=== PATIENT | female | born 1995 | race African-American/Black ===

== ENCOUNTER 2017-08-28 02:01 | Emergency (ER) | payer SELFPAY ==
[2017-08-28 02:35] LABS: Bilirubin Small (Negative); Blood, Urine Negative (Negative); Glucose, Urine (Dipstick) Negative (Negative); Ketone, Urine Trace mg/dL (Negative); Nitrite Negative (Negative); Protein, Urine (Dipstick) Trace mg/dL (Neg-Trace); Urobilinogen 0.2 mg/dL (0.2-1.0)
[2017-08-28 02:37] LABS: Bacteria/HPF Rare-Few HPF (None Seen); WBC/HPF 21-50 HPF (0-3)
[2017-08-28 03:21] LABS: Hyaline Casts/LPF NONE SEEN LPF (0-3 Hyaline); Renal Epithelial None Seen HPF (0-3); Transitional Epithelial NONE SEEN HPF (0-3); Yeast-All Forms None Seen HPF (None Seen)
[2017-08-28 04:08] LABS: #Basophils 0.1 thou/uL (0.0-0.2); #Eosinphils 0.3 thou/uL (0.0-0.7); #Lymphocytes 2.8 thou/uL (1.20-3.40); #Monocytes 0.7 thou/uL (0.11-0.59); %Basophils 0.9 % (0.0-1.0); %Eosinophils 3.1 % (0.0-10.0); %Monocytes 7.1 % (0.0-10.0); Hematocrit 37.1 % (36.0-47.0); Red Blood Cell (RBC) Count 3.63 mill/uL (4.20-5.40); White Blood Cell (WBC) Count 9.9 thou/uL (4.8-10.8)
[2017-08-28] MEDS ORDERED: Azithromycin 250 MG TAB ONE (05:46)
[2017-08-28] MEDS ORDERED: cefTRIAXone\\ROCEPHIN 250 MG VIAL ONE (05:46)
== END 2017-08-28 06:43 | disposition home or self-care (01) ==
LOC: ERS 02:01
DX: N39.0 Urinary tract infection, site not specified (principal); J45.909 Unspecified asthma, uncomplicated; F17.210 Nicotine dependence, cigarettes, uncomplicated
CPT/HCPCS: 36415; 81003; 81015; 81025; 85025; 87480; 87491; 87510; 87591; 87660; 96361; 96374; 99406; J0696

== ENCOUNTER 2018-01-01 22:37 | Emergency (ER) | payer SELFPAY | END 2018-01-02 00:29 | disposition left against medical advice (07) | LOC: ERS 22:37 | DX: Z53.21 Procedure and treatment not carried out due to patient leaving prior to being seen by health care provider (principal) ==

== ENCOUNTER 2018-05-27 22:19 | Emergency (ER) | payer SELFPAY ==
[2018-05-27 22:54] LABS: Bilirubin Negative (Negative); Blood, Urine Negative (Negative); Clarity CLEAR (Clear); Glucose, Urine (Dipstick) Negative (Negative); Leukocyte Moderate (Negative); Nitrite Negative (Negative); Pregnancy Test - Urine (BHCG) Negative (Negative); Pregu Control Background? CLEAR/WHITE (CLR/WHITE); Pregu Control Bar Appear? YES (CONTROL BAR); Protein, Urine (Dipstick) Negative (Neg-Trace); Specific Gravity 1.024 (1.002-1.036); Specific Gravity, Urine 1.024 (1.002-1.036); pH, Urine 6.5 (5.0-9.0)
[2018-05-27 22:55] LABS: Bacteria/HPF None Seen HPF (None Seen); Hyaline Casts/LPF 0-3 HYALINE CAST LPF (0-3 Hyaline); Pathc Cast-AUWi Flag 0.58 (0-2.49); RBC/HPF 0-3 HPF (0-3); WBC/HPF 21-50 HPF (0-3)
== END 2018-05-27 23:37 | disposition home or self-care (01) ==
LOC: ERS 22:19
DX: N39.0 Urinary tract infection, site not specified (principal); J45.909 Unspecified asthma, uncomplicated; F32.9 Major depressive disorder, single episode, unspecified; F17.210 Nicotine dependence, cigarettes, uncomplicated
CPT/HCPCS: 81003; 81015; 81025; 99283

== ENCOUNTER 2018-08-27 17:55 | Emergency (ER) | payer SELFPAY ==
[2018-08-27] MEDS ORDERED: Ondansetron PF 4 MG/2 ML Vial ONE (18:10)
[2018-08-27 18:35] LABS: #Eosinphils 0.1 thou/uL (0.0-0.7); #Monocytes 0.7 thou/uL (0.11-0.59); #Neutrophils 10.3 thou/uL (1.40-6.50); %Basophils 0.3 % (0.0-1.0); %Eosinophils 0.7 % (0.0-10.0); %Lymphocytes 7.9 % (21.0-51.0); %Neutrophils 85.2 % (42.0-75.0); Hemoglobin 15.3 g/dL (12.0-16.0); Mean Corpuscular HGB CONC 33.8 g/dL (32.0-36.0); Mean Corpuscular Hemoglobin 33.4 pg (27.0-31.0); Mean Platelet Volume 7.1 fL (7.4-10.4); Platelet Count 291 thou/uL (130-400); RBC Distribution Width 11.7 % (11.5-14.5); Red Blood Cell (RBC) Count 4.57 mill/uL (4.20-5.40); White Blood Cell (WBC) Count 12.1 thou/uL (4.8-10.8)
[2018-08-27 18:59] LABS: ALT (SGPT) 14 U/L (8-55); AST (SGOT) 19 U/L (5-34); Albumin 4.7 g/dL (3.5-5.0); Alkaline Phosphatase 56 U/L (40-150); Anion Gap 13 mmol/L (10-20); BUN (Urea Nitrogen) 13 mg/dL (7.0-18.7); Bilirubin, Total 0.7 mg/dL (0.2-1.2); Calc. Creatinine Clearance 0 mL/min (70-130); Calcium 9.6 mg/dL (7.8-10.44); Carbon Dioxide 23 mmol/L (22-29); Chloride 108 mmol/L (98-107); Estimated GFR-MDRD Greater than 90; Globulin 3.4 g/dL (2.4-3.5); Glucose 95 mg/dL (70-105); Lipase 36 U/L (8-78); Potassium 3.6 mmol/L (3.5-5.1); Protein, Total 8.1 g/dL (6.0-8.3); Sodium 140 mmol/L (136-145)
[2018-08-27 19:23] LABS: Bilirubin Small (Negative); Blood, Urine Negative (Negative); Clarity CLEAR (Clear); Glucose, Urine (Dipstick) Negative (Negative); Leukocyte Negative (Negative); Nitrite Negative (Negative); Protein, Urine (Dipstick) 100 mg/dL (Neg-Trace); Specific Gravity, Urine 1.033 (1.002-1.036); pH, Urine 6.5 (5.0-9.0)
[2018-08-27 19:24] LABS: Pregnancy Test - Urine (BHCG) Negative (Negative); Pregu Control Background? CLEAR/WHITE (CLR/WHITE); Pregu Control Bar Appear? YES (CONTROL BAR); Specific Gravity 1.033 (1.002-1.036)
[2018-08-27 19:26] LABS: Bacteria/HPF None Seen HPF (None Seen)
[2018-08-27 19:31] LABS: Hyaline Casts/LPF 0-3 HYALINE CAST LPF (0-3 Hyaline); Manual Microscopic Reviewed? No Path Casts Seen; Renal Epithelial None Seen HPF (0-3); Transitional Epithelial NONE SEEN HPF (0-3)
== END 2018-08-27 19:53 | disposition home or self-care (01) ==
LOC: ERS 17:55
DX: E86.0 Dehydration (principal); J45.909 Unspecified asthma, uncomplicated; F32.9 Major depressive disorder, single episode, unspecified; F17.210 Nicotine dependence, cigarettes, uncomplicated
CPT/HCPCS: 80053; 81003; 81015; 81025; 83690; 85025; 96361; 96372; 96374; J2405

== ENCOUNTER 2019-07-01 21:41 | Emergency (ER) | payer SELFPAY ==
[2019-07-01 22:32] LABS: #Basophils 0.1 thou/uL (0.0-0.2); #Eosinphils 0.2 thou/uL (0.0-0.7); #Lymphocytes 2.5 thou/uL (1.20-3.40); #Monocytes 0.4 thou/uL (0.11-0.59); #Neutrophils 4.6 thou/uL (1.40-6.50); %Eosinophils 2.8 % (0.0-10.0); %Lymphocytes 31.9 % (21.0-51.0); %Monocytes 5.6 % (0.0-10.0); %Neutrophils 58.7 % (42.0-75.0); Hemoglobin 13.1 g/dL (12.0-16.0); Mean Corpuscular HGB CONC 33.9 g/dL (32.0-36.0); Mean Corpuscular Hemoglobin 33.2 pg (27.0-31.0); Mean Corpuscular Volume 97.9 fL (78.0-98.0); Mean Platelet Volume 7.4 fL (7.4-10.4); Platelet Count 236 thou/uL (130-400); RBC Distribution Width 12.1 % (11.5-14.5); Red Blood Cell (RBC) Count 3.93 mill/uL (4.20-5.40); White Blood Cell (WBC) Count 7.9 thou/uL (4.8-10.8)
[2019-07-01 22:39] LABS: BHCG - Serum Negative (NEGATIVE); Pregs Control Background? CLEAR/WHITE (CLR/WHITE); Pregs Control Bar Appear? YES (CONTROL BAR)
[2019-07-01 22:52] LABS: ALT (SGPT) 7 U/L (8-55); AST (SGOT) 16 U/L (5-34); Albumin 3.9 g/dL (3.5-5.0); Alkaline Phosphatase 47 U/L (40-150); Anion Gap 12 mmol/L (10-20); BUN (Urea Nitrogen) 11 mg/dL (7.0-18.7); Bilirubin, Total 0.3 mg/dL (0.2-1.2); Calc. Creatinine Clearance 0 mL/min (70-130); Calcium 8.8 mg/dL (7.8-10.44); Carbon Dioxide 19 mmol/L (22-29); Chloride 111 mmol/L (98-107); Estimated GFR-MDRD 90; Globulin 2.8 g/dL (2.4-3.5); Glucose 80 mg/dL (70-105); Potassium 3.9 mmol/L (3.5-5.1); Protein, Total 6.7 g/dL (6.0-8.3); Sodium 138 mmol/L (136-145)
== END 2019-07-01 23:14 | disposition home or self-care (01) ==
LOC: ERS 21:41
DX: R11.2 Nausea with vomiting, unspecified (principal); R19.7 Diarrhea, unspecified; J45.909 Unspecified asthma, uncomplicated; F32.9 Major depressive disorder, single episode, unspecified; Z71.6 Tobacco abuse counseling; F17.210 Nicotine dependence, cigarettes, uncomplicated; Z79.51 Long term (current) use of inhaled steroids
CPT/HCPCS: 36415; 80053; 84703; 85025; 99406

== ENCOUNTER 2019-07-25 00:45 | Emergency (ER) | payer SELFPAY | END 2019-07-25 02:08 | disposition home or self-care (01) | LOC: ERS 00:45 | DX: H61.23 Impacted cerumen, bilateral (principal); H92.02 Otalgia, left ear; J45.909 Unspecified asthma, uncomplicated; F32.9 Major depressive disorder, single episode, unspecified; F17.210 Nicotine dependence, cigarettes, uncomplicated; Z79.51 Long term (current) use of inhaled steroids | CPT/HCPCS: 99282 ==

== ENCOUNTER 2019-12-09 11:13 | Emergency (ER) | payer SELFPAY ==
[2019-12-09] MEDS ORDERED: diphenhydrAMINE 50 MG/ML VIAL ONE (15:35)
[2019-12-09] MEDS ORDERED: Lorazepam 2 MG/ML VIAL ONE (15:35)
[2019-12-09] MEDS ORDERED: Haloperidol Lactate 5 MG/ML VIAL ONE (15:35)
== END 2019-12-09 12:17 | disposition home or self-care (01) ==
LOC: ERS 11:13
DX: K03.81 Cracked tooth (principal); J45.909 Unspecified asthma, uncomplicated; F32.9 Major depressive disorder, single episode, unspecified; F17.210 Nicotine dependence, cigarettes, uncomplicated
CPT/HCPCS: 99282; J1200; J1630; J2060

== ENCOUNTER 2020-03-25 07:29 | Emergency (ER) | payer OTHER, SELFPAY ==
[2020-03-25] MEDS ORDERED: predniSONE 20 MG TAB ONE ×2 (08:16→08:18)
== END 2020-03-25 08:48 | disposition home or self-care (01) ==
LOC: ERS 07:29
DX: J45.901 Unspecified asthma with (acute) exacerbation (principal); Z20.828 Contact with and (suspected) exposure to other viral communicable diseases; F32.9 Major depressive disorder, single episode, unspecified; F17.210 Nicotine dependence, cigarettes, uncomplicated
CPT/HCPCS: 99283; J7512

== ENCOUNTER 2020-04-21 23:02 | Emergency (ER) | payer SELFPAY | END 2020-04-21 23:25 | disposition home or self-care (01) | LOC: ERS 23:02 | DX: J45.901 Unspecified asthma with (acute) exacerbation (principal); F32.9 Major depressive disorder, single episode, unspecified; F17.210 Nicotine dependence, cigarettes, uncomplicated | CPT/HCPCS: 99284 ==

== ENCOUNTER 2020-04-23 16:44 | Emergency (ER) | payer OTHER, SELFPAY ==
--- NOTE | 2020-04-23 17:01 | RAD ---
EXAM: XR Chest 1 View Portable PROVIDED CLINICAL HISTORY: Cough, chest pain, shortness of breath. COMPARISON: 01/07/2018. FINDINGS: Heart and mediastinal structures have a normal appearance. Interstitial densities are seen at the lef t lung base which may be related to superimposition of structures. Developing focal area of pneumonitis cannot be entirely excluded. There is no consolidation or pleural fluid seen. No other in terval change from prior exam. IMPRESSION: Mild increased interstitial densities left lung base. This may be attributable to superimposition of structures, but developing area of pneumonitis cannot be excluded.
[2020-04-23] MEDS ORDERED: Ketorolac Tromethamine 30 MG/ML VIAL ONE (17:24)
[2020-04-23] MEDS ORDERED: PROVENTIL INHALER 6.7 G (200 INHALATIONS) ONE (17:24)
[2020-04-23] MEDS ORDERED: Albuterol Sulfate 2.5 mg/3 ml Neb ONE (17:32)
[2020-04-23] MEDS ORDERED: Albuterol 200 PUFF (6.7GM INHALER) ONE (17:33)
[2020-04-23 17:56] LABS: #Eosinphils 0.1 thou/uL (0.0-0.7); #Lymphocytes 1.3 thou/uL (1.20-3.40); #Monocytes 1.2 thou/uL (0.11-0.59); %Basophils 0.2 % (0.0-1.0); %Eosinophils 0.6 % (0.0-10.0); %Lymphocytes 9.4 % (21.0-51.0); %Monocytes 8.6 % (0.0-10.0); %Neutrophils 81.3 % (42.0-75.0); Hemoglobin 15.1 g/dL (12.0-16.0); Mean Corpuscular HGB CONC 32.9 g/dL (32.0-36.0); Mean Corpuscular Hemoglobin 31.8 pg (27.0-31.0); Mean Corpuscular Volume 96.6 fL (78.0-98.0); Mean Platelet Volume 7.6 fL (7.4-10.4); Platelet Count 284 thou/uL (130-400); RBC Distribution Width 12.1 % (11.5-14.5); Red Blood Cell (RBC) Count 4.75 mill/uL (4.20-5.40); White Blood Cell (WBC) Count 13.5 thou/uL (4.8-10.8)
[2020-04-23 18:17] LABS: ALT (SGPT) 11 U/L (8-55); AST (SGOT) 19 U/L (5-34); Albumin 4.6 g/dL (3.5-5.0); Alkaline Phosphatase 68 U/L (40-110); Anion Gap 16 mmol/L (10-20); BUN (Urea Nitrogen) 8 mg/dL (7.0-18.7); Bilirubin, Total 0.4 mg/dL (0.2-1.2); Calc. Creatinine Clearance 0 mL/min (70-130); Calcium 9.7 mg/dL (7.8-10.44); Carbon Dioxide 19 mmol/L (22-29); Chloride 110 mmol/L (98-107); Estimated GFR-MDRD Greater than 90; Globulin 3.6 g/dL (2.4-3.5); Glucose 94 mg/dL (70-105); Potassium 3.6 mmol/L (3.5-5.1); Protein, Total 8.2 g/dL (6.0-8.3); Sodium 141 mmol/L (136-145)
[2020-04-25 12:27] LABS: SARS-CoV-2 MS2 Positive; SARS-CoV-2 N Gene Negative; SARS-CoV-2 S Gene Negative; SARS-CoV-2 orf1ab Negative
== END 2020-04-23 19:15 | disposition home or self-care (01) ==
LOC: ERS 16:44
DX: J45.901 Unspecified asthma with (acute) exacerbation (principal); Z20.828 Contact with and (suspected) exposure to other viral communicable diseases; F17.210 Nicotine dependence, cigarettes, uncomplicated; Z79.51 Long term (current) use of inhaled steroids
CPT/HCPCS: 36415; 71045; 80053; 85025; 87635; 96372; J1885; J7611; U0003

== ENCOUNTER 2020-08-18 21:47 | Emergency (ER) | payer OTHER, SELFPAY ==
[2020-08-18 22:59] LABS: #Eosinphils 0.7 thou/uL (0.0-0.7); #Lymphocytes 2.7 thou/uL (1.20-3.40); #Monocytes 0.8 thou/uL (0.11-0.59); %Basophils 0.3 % (0.0-1.0); %Eosinophils 5.4 % (0.0-10.0); %Lymphocytes 20.4 % (21.0-51.0); %Monocytes 5.9 % (0.0-10.0); %Neutrophils 67.9 % (42.0-75.0); Hemoglobin 14.8 g/dL (12.0-16.0); Mean Platelet Volume 7.2 fL (7.4-10.4); Platelet Count 290 thou/uL (130-400); RBC Distribution Width 11.8 % (11.5-14.5); Red Blood Cell (RBC) Count 4.36 mill/uL (4.20-5.40); White Blood Cell (WBC) Count 13.3 thou/uL (4.8-10.8)
[2020-08-18 23:21] LABS: ALT (SGPT) 7 U/L (8-55); AST (SGOT) 16 U/L (5-34); Albumin 4.2 g/dL (3.5-5.0); Alkaline Phosphatase 53 U/L (40-110); Anion Gap 14 mmol/L (10-20); BUN (Urea Nitrogen) 8 mg/dL (7.0-18.7); Bilirubin, Total 0.3 mg/dL (0.2-1.2); Calc. Creatinine Clearance 0 mL/min (70-130); Calcium 9.5 mg/dL (7.8-10.44); Carbon Dioxide 24 mmol/L (22-29); Chloride 108 mmol/L (98-107); Estimated GFR-MDRD Greater than 90; Globulin 3.1 g/dL (2.4-3.5); Glucose 98 mg/dL (70-105); Potassium 3.7 mmol/L (3.5-5.1); Protein, Total 7.3 g/dL (6.0-8.3); Sodium 142 mmol/L (136-145)
[2020-08-18] MEDS ORDERED: methylPREDNISolone Sod Succ/PF 125 MG/2 ML VIAL ONE (23:40)
--- NOTE | 2020-08-18 23:45 | RAD ---
EXAM: CHEST ONE VIEW HISTORY: Dyspnea. History of asthma. COMPARISON: 04/23/2020 FINDINGS: The cardiac silhouette and pulmonary vasculature are within normal limits. Mild linear densities are seen at the left lung base similar to prior study could be related to superimposition of vascular structures or mild scarring. No consolidation or pleural fluid is seen. Chest is overall stable mykel red to the prior exam. IMPRESSION: Linear densities left lung base which could be related to vascular structures and mild scarring. No n ew area of consolidation or pleural fluid is seen, and the chest is overall stable compared to prior exam.
[2020-08-19] MEDS ORDERED: Ketorolac Tromethamine 30 MG/ML VIAL ONE (00:10)
[2020-08-19 14:56] LABS: SARS-CoV-2 MS2 Positive; SARS-CoV-2 N Gene Negative; SARS-CoV-2 S Gene Negative; SARS-CoV-2 by NAA Not Detected (NotDetected); SARS-CoV-2 orf1ab Negative
== END 2020-08-19 00:35 | disposition home or self-care (01) ==
LOC: ERS 21:47
DX: J45.901 Unspecified asthma with (acute) exacerbation (principal); Z20.828 Contact with and (suspected) exposure to other viral communicable diseases; F17.210 Nicotine dependence, cigarettes, uncomplicated
CPT/HCPCS: 36415; 71045; 80053; 85025; 87635; 87804; 96374; 96375; J1885; J2930; J7620; U0003

== ENCOUNTER 2020-11-24 09:15 | Emergency (ER) | payer SELFPAY ==
[2020-11-24 09:57] LABS: #Basophils 0.1 thou/uL (0.0-0.2); #Eosinphils 0.6 thou/uL (0.0-0.7); #Lymphocytes 1.8 thou/uL (1.20-3.40); #Monocytes 0.8 thou/uL (0.11-0.59); #Neutrophils 9.9 thou/uL (1.40-6.50); %Basophils 0.7 % (0.0-1.0); %Eosinophils 4.3 % (0.0-10.0); %Lymphocytes 13.5 % (21.0-51.0); %Neutrophils 75.4 % (42.0-75.0); Hemoglobin 14.4 g/dL (12.0-16.0); Mean Corpuscular HGB CONC 34.5 g/dL (32.0-36.0); Mean Corpuscular Hemoglobin 34.1 pg (27.0-31.0); Mean Corpuscular Volume 98.7 fL (78.0-98.0); Mean Platelet Volume 7.2 fL (7.4-10.4); Platelet Count 255 thou/uL (130-400); RBC Distribution Width 12.1 % (11.5-14.5); Red Blood Cell (RBC) Count 4.23 mill/uL (4.20-5.40); White Blood Cell (WBC) Count 13.1 thou/uL (4.8-10.8)
[2020-11-24 10:14] LABS: ALT (SGPT) Less than 7 U/L (8-55); AST (SGOT) 16 U/L (5-34); Albumin 4.4 g/dL (3.5-5.0); Alkaline Phosphatase 59 U/L (40-110); Anion Gap 14 mmol/L (10-20); BUN (Urea Nitrogen) 8 mg/dL (7.0-18.7); Bilirubin, Total 0.5 mg/dL (0.2-1.2); Calc. Creatinine Clearance 0 mL/min (70-130); Calcium 8.9 mg/dL (7.8-10.44); Carbon Dioxide 22 mmol/L (22-29); Chloride 112 mmol/L (98-107); Globulin 2.8 g/dL (2.4-3.5); Glucose 85 mg/dL (70-105); Potassium 3.7 mmol/L (3.5-5.1); Protein, Total 7.2 g/dL (6.0-8.3); Sodium 144 mmol/L (136-145)
--- NOTE | 2020-11-24 10:27 | RAD ---
XR Chest 1 View Portable History: Chest pain Comparison: Radiograph August 18, 2020 Findings: Lungs are clear. No pneumothorax or effusion. Cardiac silhouette and mediastinal contours a re within normal limits. No acute osseous abnormality. Impression: No acute intrathoracic abnormality.
[2020-11-24] MEDS ORDERED: predniSONE 20 MG TAB ONE (11:30)
[2020-11-24] MEDS ORDERED: Albuterol 200 PUFF (6.7GM INHALER) ONE (11:32)
== END 2020-11-24 12:30 | disposition home or self-care (01) ==
LOC: ERS 09:15
DX: J45.901 Unspecified asthma with (acute) exacerbation (principal); F17.210 Nicotine dependence, cigarettes, uncomplicated; Z79.51 Long term (current) use of inhaled steroids
CPT/HCPCS: 36415; 71045; 80053; 84484; 85025; 93005; J7512

== ENCOUNTER 2021-01-09 09:02 | Observation (INO) | payer OTHER, SELFPAY ==
[2021-01-09] MEDS ORDERED: Morphine 4 MG/ML VIAL ONE ×2 (09:09→10:47)
[2021-01-09 09:30] LABS: #Basophils 0.1 thou/uL (0.0-0.2); #Eosinphils 0.4 thou/uL (0.0-0.7); #Lymphocytes 2.1 thou/uL (1.20-3.40); #Monocytes 0.5 thou/uL (0.11-0.59); #Neutrophils 4.6 thou/uL (1.40-6.50); %Basophils 1.1 % (0.0-1.0); %Eosinophils 5.7 % (0.0-10.0); %Lymphocytes 27.1 % (21.0-51.0); %Neutrophils 59.2 % (42.0-75.0); Hemoglobin 14.8 g/dL (12.0-16.0); Mean Corpuscular HGB CONC 34.5 g/dL (32.0-36.0); Mean Corpuscular Hemoglobin 33.9 pg (27.0-31.0); Mean Corpuscular Volume 98.3 fL (78.0-98.0); Platelet Count 289 thou/uL (130-400); RBC Distribution Width 11.8 % (11.5-14.5); Red Blood Cell (RBC) Count 4.36 mill/uL (4.20-5.40); White Blood Cell (WBC) Count 7.7 thou/uL (4.8-10.8)
[2021-01-09] MEDS ORDERED: Iopamidol-370 76% 500 ML 1 ML ONE (09:32)
[2021-01-09 09:37] LABS: BHCG - Serum Negative (NEGATIVE); Pregs Control Background? CLEAR/WHITE (CLR/WHITE); Pregs Control Bar Appear? YES (CONTROL BAR)
[2021-01-09 09:48] LABS: ALT (SGPT) Less than 7 U/L (8-55); AST (SGOT) 14 U/L (5-34); Albumin 4.1 g/dL (3.5-5.0); Alkaline Phosphatase 57 U/L (40-110); Anion Gap 13 mmol/L (10-20); BUN (Urea Nitrogen) 14 mg/dL (7.0-18.7); Bilirubin, Total 0.4 mg/dL (0.2-1.2); Calc. Creatinine Clearance 0 mL/min (70-130); Calcium 9.2 mg/dL (7.8-10.44); Carbon Dioxide 22 mmol/L (22-29); Chloride 112 mmol/L (98-107); Globulin 3.1 g/dL (2.4-3.5); Glucose 87 mg/dL (70-105); Potassium 3.7 mmol/L (3.5-5.1); Protein, Total 7.2 g/dL (6.0-8.3); Sodium 143 mmol/L (136-145)
[2021-01-09 09:49] LABS: PTT 28.5 sec (22.9-36.1); Prothrombin Time 13.5 sec (12.0-14.7)
[2021-01-09] MEDS ORDERED: Cyclobenzaprine 10 MG TAB PO PRN (12:37)
[2021-01-09] MEDS ORDERED: TETANUS, DIPHTHERIA TOX,ADULT (TDVAX) 0.5 ML VIAL IM ONE (12:37)
[2021-01-09] MEDS ORDERED: Morphine 2 MG/ML VIAL SLOW IVP PRN (12:37)
[2021-01-09] MEDS ORDERED: Acetaminophen 325 MG TAB PO SCH ×2 (12:45→20:45)
[2021-01-09] MEDS: Ondansetron PF 4 MG/2 ML Vial IVP SCH ×2 (14:48→18:03)
[2021-01-09] MEDS: Pseudoephedrine HCl 30 MG TAB PO SCH ×2 (14:54→18:03)
[2021-01-09] MEDS: Ibuprofen 600 MG TAB PO SCH ×2 (14:58→21:32)
[2021-01-09] MEDS: Gabapentin 300 MG CAP PO SCH ×2 (14:58→21:34)
[2021-01-09] MEDS: traMADol HCl 50 MG TAB PO SCH (18:02)
[2021-01-09 18:38] VITALS: BMI 27.2
[2021-01-09] MEDS: Famotidine 20 MG TAB PO SCH (21:32)
[2021-01-09] MEDS: Amoxicillin/Potassium Clav 875 MG TAB PO SCH (21:32)
[2021-01-09] MEDS: Docusate 100 MG CAP PO SCH (21:41)
[2021-01-10] MEDS: traMADol HCl 50 MG TAB PO SCH ×4 (00:07→18:52)
[2021-01-10] MEDS: Pseudoephedrine HCl 30 MG TAB PO SCH ×4 (00:09→18:53)
[2021-01-10] MEDS: Ondansetron PF 4 MG/2 ML Vial IVP SCH ×4 (00:10→20:55)
[2021-01-10 00:36] LABS: SARS-CoV-2 PCR by NAA Not Detected (NotDetected)
[2021-01-10] MEDS: Ibuprofen 600 MG TAB PO SCH ×4 (04:40→20:56)
[2021-01-10] MEDS: Mometasone 200 MCG/Formoterol 5 MCG 120 PUFF INHALER INH SCH ×2 (06:32→19:04)
[2021-01-10] MEDS: Gabapentin 300 MG CAP PO SCH ×3 (07:44→20:56)
[2021-01-10] MEDS: Amoxicillin/Potassium Clav 875 MG TAB PO SCH ×2 (07:45→20:56)
[2021-01-10] MEDS: Docusate 100 MG CAP PO SCH ×2 (07:45→20:56)
[2021-01-10] MEDS: Famotidine 20 MG TAB PO SCH ×2 (07:45→20:55)
[2021-01-10] MEDS: traMADol HCl 50 MG TAB PO PRN ×2 (07:52→16:28)
[2021-01-10] MEDS ORDERED: ALBUTEROL SULFATE 0.63 MG/3 ML NEB SCH (09:00)
[2021-01-10] MEDS: Dexamethasone 4 MG TAB PO SCH ×2 (12:23→18:52)
[2021-01-10] MEDS: Albuterol Sulfate 1.25 MG/3 ML NEB NEB SCH (19:03)
[2021-01-10] MEDS: Ibuprofen 200 MG TAB PO SCH (22:20)
[2021-01-11] MEDS: Pseudoephedrine HCl 30 MG TAB PO SCH ×3 (00:08→13:11)
[2021-01-11] MEDS: traMADol HCl 50 MG TAB PO SCH ×4 (00:08→11:18)
[2021-01-11] MEDS: Dexamethasone 4 MG TAB PO SCH ×3 (00:08→13:10)
[2021-01-11] MEDS: Ondansetron PF 4 MG/2 ML Vial IVP SCH ×2 (00:17→08:12)
[2021-01-11 04:09] VITALS: TEMP 98.1
[2021-01-11] MEDS: Ibuprofen 200 MG TAB PO SCH ×2 (04:58→13:10)
[2021-01-11] MEDS: Albuterol Sulfate 1.25 MG/3 ML NEB NEB SCH (07:05)
[2021-01-11] MEDS: Mometasone 200 MCG/Formoterol 5 MCG 120 PUFF INHALER INH SCH (07:06)
[2021-01-11] MEDS: Amoxicillin/Potassium Clav 875 MG TAB PO SCH (08:11)
[2021-01-11] MEDS: Famotidine 20 MG TAB PO SCH (08:12)
[2021-01-11] MEDS: Docusate 100 MG CAP PO SCH (08:12)
[2021-01-11] MEDS: Gabapentin 300 MG CAP PO SCH (08:12)
[2021-01-11 11:46] VITALS: BP 117/67
== END 2021-01-11 14:31 | disposition home or self-care (01) ==
LOC: ERS 09:02 → INTOOBSV 12:21 → SJJU 12:21
PROVIDERS: ADMIT Surgery; ATTEND Surgery
DX: S02.31XA Fracture of orbital floor, right side, initial encounter for closed fracture (principal); S02.2XXA Fracture of nasal bones, initial encounter for closed fracture; S02.40CA Maxillary fracture, right side, initial encounter for closed fracture; H53.2 Diplopia; G89.11 Acute pain due to trauma; J45.909 Unspecified asthma, uncomplicated; F17.210 Nicotine dependence, cigarettes, uncomplicated; Z20.822 Contact with and (suspected) exposure to COVID-19; V49.49XA Driver injured in collision with other motor vehicles in traffic accident, initial encounter
CPT/HCPCS: 36415; 70450; 70486; 71260; 72125; 74177; 80053; 84703; 85025; 85610; 85730; 86850; 86900; 86901; 87635; 90714; 94640; 94760; 96365; 96375; 96376; G0378; G0390; J0690; J2270; J2405; J8540; Q9967; U0003; U0005

== ENCOUNTER 2021-08-11 19:03 | Emergency (ER) | payer SELFPAY | END 2021-08-11 20:02 | disposition left against medical advice (07) | LOC: ERS 19:03 | DX: Z53.21 Procedure and treatment not carried out due to patient leaving prior to being seen by health care provider (principal) ==

== ENCOUNTER 2021-08-16 13:48 | Emergency (ER) | payer SELFPAY ==
[2021-08-16 16:33] LABS: SARS-CoV-2 NAA Rapid Test DETECTED (NotDetected)
== END 2021-08-16 16:47 | disposition home or self-care (01) ==
LOC: ERS 13:48
DX: U07.1 COVID-19 (principal); F17.210 Nicotine dependence, cigarettes, uncomplicated
CPT/HCPCS: 99284; U0002

== ENCOUNTER 2021-08-23 06:11 | Emergency (ER) | payer SELFPAY ==
[2021-08-23 07:03] LABS: #Eosinphils 0.4 thou/uL (0.0-0.7); #Lymphocytes 1.1 thou/uL (1.20-3.40); #Monocytes 0.5 thou/uL (0.11-0.59); #Neutrophils 5.5 thou/uL (1.40-6.50); %Basophils 0.4 % (0.0-1.0); %Eosinophils 5.2 % (0.0-10.0); %Lymphocytes 14.4 % (21.0-51.0); %Monocytes 6.8 % (0.0-10.0); %Neutrophils 73.2 % (42.0-75.0); Mean Corpuscular HGB CONC 33.2 g/dL (32.0-36.0); Mean Corpuscular Hemoglobin 32.4 pg (27.0-31.0); Mean Corpuscular Volume 97.5 fL (78.0-98.0); Mean Platelet Volume 6.6 fL (7.4-10.4); Platelet Count 259 thou/uL (130-400); Red Blood Cell (RBC) Count 4.33 mill/uL (4.20-5.40); White Blood Cell (WBC) Count 7.5 thou/uL (4.8-10.8)
[2021-08-23 07:28] LABS: ALT (SGPT) 15 U/L (8-55); AST (SGOT) 23 U/L (5-34); Albumin 3.9 g/dL (3.5-5.0); Alkaline Phosphatase 59 U/L (40-110); Anion Gap 12 mmol/L (10-20); BUN (Urea Nitrogen) 6 mg/dL (7.0-18.7); Bilirubin, Total 0.3 mg/dL (0.2-1.2); CRP (Inflammatory) 0.93 mg/dL (= or < 0.5); Calc. Creatinine Clearance 0 mL/min (70-130); Calcium 9.2 mg/dL (7.8-10.44); Carbon Dioxide 21 mmol/L (22-29); Chloride 112 mmol/L (98-107); Globulin 3.1 g/dL (2.4-3.5); Glucose 97 mg/dL (70-105); Potassium 3.8 mmol/L (3.5-5.1); Sodium 141 mmol/L (136-145)
[2021-08-23 07:30] LABS: BHCG - Serum Negative (NEGATIVE); Pregs Control Background? CLEAR/WHITE (CLR/WHITE); Pregs Control Bar Appear? YES (CONTROL BAR)
[2021-08-23] MEDS ORDERED: Albuterol 200 PUFF (6.7GM INHALER) ONE (08:23)
[2021-08-23] MEDS ORDERED: predniSONE 20 MG TAB ONE (08:23)
[2021-08-23] MEDS ORDERED: Iopamidol-370 76% 500 ML 1 ML ONE (09:59)
== END 2021-08-23 08:40 | disposition home or self-care (01) ==
LOC: ERS 06:11
DX: U07.1 COVID-19 (principal); J45.909 Unspecified asthma, uncomplicated; F17.210 Nicotine dependence, cigarettes, uncomplicated
CPT/HCPCS: 36415; 71275; 80053; 83605; 84484; 84703; 85025; 86140; 93005; J7512; Q9967

== ENCOUNTER 2021-10-18 04:35 | Emergency (ER) | payer SELFPAY, OTHER ==
[2021-10-18] MEDS ORDERED: Albuterol 200 PUFF (6.7GM INHALER) ONE (06:02)
[2021-10-18 06:50] LABS: SARS-CoV-2 NAA Rapid Test Not Detected (NotDetected)
== END 2021-10-18 06:23 | disposition home or self-care (01) ==
LOC: ERS 04:35
DX: R05.9 Cough, unspecified (principal); R50.9 Fever, unspecified; Z20.822 Contact with and (suspected) exposure to COVID-19; J45.909 Unspecified asthma, uncomplicated; F17.210 Nicotine dependence, cigarettes, uncomplicated
CPT/HCPCS: 0240U; 94664

== ENCOUNTER 2022-03-13 18:37 | Emergency (ER) | payer SELFPAY ==
[2022-03-13] MEDS ORDERED: diphenhydrAMINE 25 MG CAP ONE (20:20)
[2022-03-13] MEDS ORDERED: Famotidine 20 MG TAB ONE (20:20)
== END 2022-03-13 20:57 | disposition home or self-care (01) ==
LOC: ERS 18:37
DX: L25.9 Unspecified contact dermatitis, unspecified cause (principal); F17.210 Nicotine dependence, cigarettes, uncomplicated
CPT/HCPCS: 99282

== ENCOUNTER 2023-06-18 01:48 | Emergency (ER) | payer SELFPAY ==
[2023-06-18] MEDS ORDERED: predniSONE 20 MG TAB ONE (02:32)
[2023-06-18 03:16] LABS: #Basophils 0.1 thou/uL (0.0-0.2); #Eosinphils 0.6 thou/uL (0.0-0.7); #Monocytes 0.7 thou/uL (0.11-0.59); #Neutrophils 5.2 thou/uL (1.40-6.50); %Basophils 0.8 % (0.0-1.0); %Eosinophils 6.7 % (0.0-10.0); %Lymphocytes 28.1 % (21.0-51.0); %Monocytes 7.6 % (0.0-10.0); %Neutrophils 56.6 % (42.0-75.0); Hemoglobin 13.3 g/dL (12.0-16.0); Mean Corpuscular HGB CONC 34.1 g/dL (32.0-36.0); Mean Corpuscular Hemoglobin 31.4 pg (27.0-31.0); Mean Corpuscular Volume 92.2 fl (78.0-98.0); Mean Platelet Volume 9.3 fL (7.4-10.4); Platelet Count 328 10x3/uL (130-400); RBC Distribution Width 13.4 % (11.5-14.5); Red Blood Cell (RBC) Count 4.23 mill/uL (4.20-5.40); White Blood Cell (WBC) Count 9.1 10x3/uL (4.8-10.8)
[2023-06-18 03:39] LABS: ALT (SGPT) 8 U/L (8-55); AST (SGOT) 15 U/L (5-34); Alkaline Phosphatase 62 U/L (40-110); Anion Gap 12 mmol/L (10-20); BUN (Urea Nitrogen) 6 mg/dL (7.0-18.7); Bilirubin, Total 0.2 mg/dL (0.2-1.2); Calc. Creatinine Clearance 0 mL/min (70-130); Calcium 9.3 mg/dL (7.8-10.44); Carbon Dioxide 23 mmol/L (22-29); Chloride 110 mmol/L (98-107); Estimated GFR 86; Glucose 91 mg/dL (70-105); Potassium 3.2 mmol/L (3.5-5.1); Sodium 142 mmol/L (136-145)
== END 2023-06-18 04:07 | disposition home or self-care (01) ==
LOC: ERS 01:48
DX: J45.909 Unspecified asthma, uncomplicated (principal); F17.210 Nicotine dependence, cigarettes, uncomplicated; Z20.822 Contact with and (suspected) exposure to COVID-19
CPT/HCPCS: 36415; 71045; 80053; 85025; 87635; 93005; 94640; J7512

== ENCOUNTER 2023-10-11 08:22 | Emergency (ER) | payer BC ==
[2023-10-11 09:32] LABS: #Basophils 0.1 thou/uL (0.0-0.2); #Eosinphils 0.3 thou/uL (0.0-0.7); #Monocytes 0.6 thou/uL (0.11-0.59); #Neutrophils 6.8 thou/uL (1.40-6.50); %Basophils 0.6 % (0.0-1.0); %Lymphocytes 18.9 % (21.0-51.0); %Monocytes 5.8 % (0.0-10.0); %Neutrophils 71.4 % (42.0-75.0); Hematocrit 38.2 % (36.0-47.0); Hemoglobin 12.4 g/dL (12.0-16.0); Mean Corpuscular HGB CONC 32.5 g/dL (32.0-36.0); Mean Corpuscular Hemoglobin 31.3 pg (27.0-31.0); Mean Corpuscular Volume 96.5 fl (78.0-98.0); Mean Platelet Volume 9.4 fL (7.4-10.4); Platelet Count 283 10x3/uL (130-400); RBC Distribution Width 13.7 % (11.5-14.5); Red Blood Cell (RBC) Count 3.96 mill/uL (4.20-5.40); White Blood Cell (WBC) Count 9.5 10x3/uL (4.8-10.8)
[2023-10-11 09:51] LABS: SARS-CoV-2 NAA Rapid Test Not Detected (NotDetected)
[2023-10-11 09:57] LABS: Troponin I Less than 0.010 ng/mL (< 0.028)
[2023-10-11 10:00] LABS: ALT (SGPT) Less than 7 U/L (8-55); AST (SGOT) 18 U/L (5-34); Alkaline Phosphatase 58 U/L (40-110); Anion Gap 14 mmol/L (10-20); BUN (Urea Nitrogen) 13 mg/dL (7.0-18.7); Bilirubin, Total 0.2 mg/dL (0.2-1.2); Calc. Creatinine Clearance 0 mL/min (70-130); Calcium 8.7 mg/dL (7.8-10.44); Carbon Dioxide 17 mmol/L (22-29); Chloride 113 mmol/L (98-107); Estimated GFR 92; Globulin 3.4 g/dL (2.4-3.5); Glucose 96 mg/dL (70-105); Potassium 4.6 mmol/L (3.5-5.1); Protein, Total 7.4 g/dL (6.0-8.3); Sodium 139 mmol/L (136-145)
== END 2023-10-11 10:31 | disposition home or self-care (01) ==
LOC: ERS 08:22
DX: J06.9 Acute upper respiratory infection, unspecified (principal); F17.210 Nicotine dependence, cigarettes, uncomplicated
CPT/HCPCS: 36415; 71045; 80053; 84484; 85025; 93005